=== PATIENT | male | born 1950 | race Caucasian/White ===

== ENCOUNTER → 2022-11-22 | Outpatient (CLI) | payer MEDICARE, SELFPAY ==
[2022-11-22 15:49] LABS: Absolute Lymphocyte Count 2.81 X10^3/uL (0.83-4.51); Absolute Neutrophil Count 10.4 X10^3/uL (2.0-7.7); Basophil# 0.08 X10^3/uL; Basophil% 0.6 % (0-1); Eosinophil# 0.35 X10^3/uL; Eosinophils% 2.4 % (0-5); Hematocrit 45.8 % (40-54); Lymphocyte # 2.81 X10^3/ul (0.83-4.51); Lymphocyte % 19.4 % (19-41); Mean Corp Hgb Conc 32.8 g/dL (32-36); Mean Corpuscular Hgb 29.1 pg (27.0-32.0); Mean Corpuscular Volume 88.8 fL (80-94); Mean Platelet Vol. 9.5 fl (6.2-12.0); Monocyte% 4.8 % (0-10); NRBC Flagged by Analyzer 0 % (0-5); Neutrophil # 10.43 X10^3/uL (2.7-7.7); Neutrophil % 72.1 % (47-70); Platelet Count 443 K/mm3 (150-450); RBC Distribution Width CV 12.2 % (11.6-14.6); Red Blood Count 5.16 M/mm3 (4.6-6.2); White Blood Count 14.5 K/mm3 (4.4-11.0)
[2022-11-22 16:22] LABS: BNP,B-Type NATRIURETIC PEPTIDE 6.5 pg/mL (0-100)
[2022-11-22 16:26] LABS: ALB/GLOB Ratio 0.8 RATIO (0.9-2.4); AST(SGOT) 12 U/L (15-37); Alanine Aminotransfer ALT/SGPT 22 U/L (16-61); Albumin, Serum 3.6 g/dL (3.2-5.0); Alkaline Phosphatase 102 U/L (45-117); Anion Gap 8 (5-15); BUN 17 mg/dL (7-18); BUN/Creat Ratio 13.9 RATIO (10-20); Chloride 104 mmol/L (98-107); Creatinine, Serum 1.22 mg/dL (0.70-1.30); EST Glomerular Filtration Rate 62 mL/min (>60); Est Glom Filt Rate - Afr Amer 76 mL/min (>60); Globulin 4.3 g/dL (2.2-4.2); Glucose 150 mg/dL (74-106); Potassium 4.5 mmol/L (3.5-5.1); Protein, Total 7.9 g/dL (6.4-8.2); Sodium Level 140 mmol/L (136-145); Thyroid Stim Hormone (TSH) 2.94 uIU/mL (0.358-3.74); Troponin-I HS 4 pg/mL (3.0-78.0)
[2022-11-22 17:03] LABS: D-Dimer Quantitative (DVT/PE) 0.66 FEU/ug/m (0.27-0.49)
== END | disposition home or self-care (01) ==
LOC: LABSPEC 15:28
PROVIDERS: Referring Provider Internal Medicine; Visit Provider Internal Medicine
DX: I10 Essential (primary) hypertension (principal); R06.02 Shortness of breath
CPT/HCPCS: 80053; 83880; 84443; 84484; 85025; 85379

== ENCOUNTER 2023-04-10 14:49 | Inpatient (IN) | payer MEDICARE, SELFPAY ==
[2023-04-10] VITALS (9 sets, daily range): BP systolic 108–166; BP diastolic 51–122; PULSE 96–113; RESP 18–29; TEMP 36.1–36.9; O2SAT 92–100; BMI 28.8
--- NOTE | 2023-04-10 15:54 | EKG12_ITS ---
Test Reason : Blood Pressure : / mmHG Vent. Rate : 102 BPM Atrial Rate : 102 BPM P-R Int : 196 ms QRS Dur : 094 ms QT Int : 346 ms P-R-T Axes : 061 027 059 degrees QTc Int : 450 ms Poor data quality, interpretation may be adversely affected Sinus tachycardia Otherwise normal ECG Confirmed by ALEXANDER DURAN, NISSA ([id number]), desk editor MARIANA RAMACHANDRAN ([id number]) on 04/12/2023 8:55:17 AM Referred By: Confirmed By:PRINCE MUNOZ MD
--- NOTE | 2023-04-10 15:55 | EX.ED.DYSGE1 ---
HPI History of Present Illness Chief Complaint: Diarrhea Informant: patient Onset/Context/Timing Onset: Days (5 days) Context: Gradual Onset Narrative Narrative: Patient presents with 5-day history of diarrhea with concern for dehydration. He states that he has had dysuria as well. He has chills but no fever. He reports shortness of breath with has been intermittent for several months. He has had cough with clear sputum. [facility] Medical History Andersen's palsy Chronic back pain Chronic neck pain High cholesterol Hx of gastroesophageal reflux (GERD) Home Medications cyclobenzaprine 10 mg tablet 10 mg PO TID PRN PRN Pain 11/17/13 [History Last Taken Unknown] dicyclomine 20 mg tablet (Bentyl) 20 mg PO 4X/DAY PRN Abdominal Pain #20 tabs 11/17/13 [Rx Last Taken Unknown] gabapentin 600 mg tablet 600 mg PO TIDCM 11/17/13 [History Last Taken Unknown] hydrocodone-acetaminophen 5-325mg 5mg-325mg 1 tab PO TID PRN PRN Pain 11/17/13 [History Last Taken Unknown] omeprazole 20 mg capsule,delayed release 20 mg PO DAILY 11/17/13 [History Last Taken Unknown] pravastatin 40 mg tablet 40 mg PO QHS 11/17/13 [History Last Taken Unknown] promethazine 25 mg tablet 25 mg PO Q6H PRN PRN Nausea ##10 11/17/13 [Rx Last Taken Unknown] Allergy/AdvReac Type Severity Reaction Status Date / Time aspirin AdvReac Nausea Verified 04/10/23 14:53 Social History Smoking Status: Former smoker ROS ROS ED Constitutional Constitutional ED: Reports chills; Denies fever(s) Eyes Eyes: Denies change in vision or discharge from eye(s) ENT ENT ED: Denies discharge from eye(s), rhinorrhea or sore throat Cardiovascular Cardiovascular: Denies chest pain or palpitations Respiratory/Chest Respiratory/Chest: Reports cough, dyspnea and sputum Gastrointestinal Gastrointestinal: Reports diarrhea; Denies abdominal pain, nausea or vomiting Genitourinary Genitourinary ED: Reports dysuria Musculoskeletal Musculoskeletal: Denies back pain or extremity pain Integumentary Denies Abrasions or rash Neurologic Neurologic: Denies headache(s) or weakness Psychiatric Psychiatric: Denies anxiety or depression Allergic/Immunologic Allergic/Immunologic ED: Denies lip swelling or urticaria EXAM Physical Exam Const Vital Signs: 04/10/23 14:51 04/10/23 16:30 04/10/23 17:00 Temperature 97.8 F 98.3 F 98.1 F Temperature Source Temporal Oral Oral Pulse Rate 113 H 104 H 105 H Respiratory Rate 20 H 29 H 18 Blood Pressure 166/122 H 120/63 121/72 H Blood Pressure Mean 136 82 88 Pulse Ox 100 95 97 Oxygen Delivery Method Room Air Room Air Room Air 04/10/23 18:00 04/10/23 20:00 04/10/23 21:00 Temperature 98.1 F 97 F L 97.8 F Temperature Source Oral Temporal Temporal Pulse Rate 104 H 109 H 103 H Respiratory Rate 24 H 21 H 25 H Blood Pressure 123/71 H 108/51 L 130/64 H Blood Pressure Mean 88 70 86 Pulse Ox 94 94 93 Oxygen Delivery Method Room Air Room Air Room Air Positive well nourished and well developed General Appearance ED: well developed HEENT Reports normocephalic and head/scalp atraumatic HEENT Narrative: Left-sided facial droop. 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 Eyes PERRL and EOMs intact bilaterally Neck supple Chest Wall inspection of chest normal and palpation of chest normal Resp normal respiratory effort and clear to auscultation bilaterally Cardio regular rhythm Rate: tachycardic GI GI Narrative: Abdomen soft and distended. No focal tenderness. Active bowel sounds noted throughout. Palpation: soft Extremity normal to inspection Neuro oriented x3 and no sensory deficits noted Sensorium / Orientation: alert Motor Exam: strength 5/5 throughout Psych mental status grossly normal Skin no rashes or lesions noted MDM MDM MDM Narrative Medical decision making narrative: Patient is present pvc monitor. IV fluids given. EKG obtained to evaluate for cardiac arrhythmia/ischemia. Labwork obtained to evaluate for leukocytosis, anemia, and electrolyte derangement. Urinalysis obtained to evaluate for infection/hematuria. I did review Dr. Jules's office visit today. She states urine dip in the office did reveal infection and a prescription for cefdinir was sent to the pharmacy for him. History & Record Review Discussion w/independent historian: Patient and Family Lab Data Attestation: I reviewed the patient's lab results. Labs: Laboratory Results - last 24 hr 04/10/23 04/10/23 16:30 17:34 WBC 30.5 H* RBC 5.21 Hgb 15.0 Hct 45.4 MCV 87.1 MCH 28.8 MCHC 33.0 RDW Std Deviation 41.1 RDW Coeff of Lois 13.1 Plt Count 353 MPV 9.4 Immature Gran % (Auto) 1.300 H Neut % (Auto) 88.1 H Lymph % (Auto) 5.1 L [place] % (Auto) 5.2 Eos % (Auto) 0.0 Baso % (Auto) 0.3 Absolute Neuts (auto) 26.8 H Absolute Lymphs (auto) 1.54 Nucleated RBC % 0 Differential Comment SEE COMMENTS Diff Path Review May foll Platelet Estimate ADEQUATE RBC Morphology N CHROM Anisocytosis RARE Sodium 134 L Potassium 3.8 Chloride 101 Carbon Dioxide 25.0 Anion Gap 8 BUN 13 Creatinine 1.44 H Estim Creat Clear Calc 47.73 Est GFR (MDRD) Af Amer 62 Est GFR (MDRD) Non-Af 52 L BUN/Creatinine Ratio 9.0 L Glucose 144 H Calcium 9.4 Total Bilirubin 1.40 H Direct Bilirubin 0.19 AST 25 ALT 23 Alkaline Phosphatase 117 Total Protein 8.7 H Albumin 3.5 Globulin 5.2 H Urine Color Yellow Urine Clarity Clear Urine pH 7.0 Ur Specific [place] 1.005 Urine Protein 100 H Urine Glucose (UA) Normal Urine Ketones 5 H Urine Occult Blood 25 H Urine Nitrite Negative Urine Bilirubin Negative Urine Urobilinogen Normal Ur Leukocyte Esterase 500 H Urine RBC 0 SEEN Urine WBC 10-25 SEEN Ur Squamous Epith Cells 0-5 SEEN Urine Bacteria 0 SEEN Urine Mucus 0 SEEN Radiography Chest X-Ray - ED: 1 View, Read by ED Physician, Chronic Changes and No Infiltrates Diagnostic Testing: Clinical Impression(s) from Imaging Studies Abdomen/Pelvis CT 04/10/23 18:23 IMPRESSION: Findings suspicious for cystitis. Correlate with urinalysis. Questionable 1.2 cm enhancing round mass in the distal tail of the pancreas. Differential includes accessory splenic tissue or endocrine tumor such as insulinoma. Recommend multiphase CT or MR abdomen with and without contrast for further evaluation. Mild prostatomegaly. Correlate with PSA levels. Electronically Signed: Bob Horvath MD at 19:53 EDT , EKG Initial EKG: Attestation: I personally reviewed and interpreted this EKG as follows: Interpretation: Sinus Tachycardia (Sinus tach at 102. No acute ischemia.) Treatment and Re-Evaluation :: CBC was a white count of 30.5 with 88% neutrophils. Chemistry studies reveal a creatinine 1.44. Total bili is 1.4. Remainder of LFTs unremarkable. Urinalysis reveals 10-25 white cells with 0-5 epithelials. Negative nitrites and 0 bacteria. Blood and urine cultures have been sent. With the patient's white blood cell count elevated that high and having diarrhea, I was concerned for C. difficile. Stool studies have been ordered. 2 separate samples have been sent, however 1 was contaminated with urine and 1 was not a large enough sample. I spoke with patient's primary care physician, Dr. Jules who saw him in the office today. She states that she does not know of him to have a chronically elevated white count and this certainly is out of character. She states her primary concern when she saw in the office today was for his breathing. Because I could not get stool, CT of the abdomen pelvis was obtained to evaluate for obvious signs of colitis. This returns with possible cystitis, but no significant bowel findings are noted. Portable chest x-ray per my interpretation reveals no focal infiltrate. Chronic changes appreciated. At this time the lactic acid is pending. Patient is given a dose of IV Rocephin. PCP would feel more comfortable with patient being observed overnight and repeat labs to ensure he is not developing sepsis. I will speak with the hospitalist. Discharge Plan Dx/Rx/DC Orders Clinical Impression: UTI (urinary tract infection), Diarrhea, Leukocytosis Disposition Disposition: Acute Care [facility]
[2023-04-10 16:42] LABS: Absolute Lymphocyte Count 1.54 X10^3/uL (0.83-4.51); Absolute Neutrophil Count 26.8 X10^3/uL (2.0-7.7); Basophil% 0.3 % (0-1); Hematocrit 45.4 % (40-54); Lymphocyte # 1.54 X10^3/ul (0.83-4.51); Lymphocyte % 5.1 % (19-41); Mean Corpuscular Hgb 28.8 pg (27.0-32.0); Mean Corpuscular Volume 87.1 fL (80-94); Mean Platelet Vol. 9.4 fl (6.2-12.0); Monocyte# 1.57 X10^3/uL; Monocyte% 5.2 % (0-10); NRBC Flagged by Analyzer 0 % (0-5); Neutrophil # 26.84 X10^3/uL (2.7-7.7); Neutrophil % 88.1 % (47-70); POSITIVE COUNT YES; POSITIVE DIFFERENTIAL YES; Platelet Count 353 K/mm3 (150-450); RBC Distribution Width CV 13.1 % (11.6-14.6); RBC Distribution Width SD 41.1 fl (35.1-43.9); Red Blood Count 5.21 M/mm3 (4.6-6.2)
[2023-04-10] MEDS: 0.9% Normal Saline 1,000 ML 1000 ML IV (16:45)
[2023-04-10 16:49] LABS: Differential Indicated SCAN CRITERIA MET
[2023-04-10 16:51] LABS: White Blood Count 30.5 K/mm3 (4.4-11.0)
[2023-04-10 17:21] LABS: Anisocytosis RARE; Differential Comment SEE COMMENTS; Platelet Estimate ADEQUATE (ADEQ); Red Cell Morphology N CHROM NORMAL (NORM C&C)
[2023-04-10 17:24] LABS: AST(SGOT) 25 U/L (15-37); Alanine Aminotransfer ALT/SGPT 23 U/L (16-61); Albumin, Serum 3.5 g/dL (3.2-5.0); Alkaline Phosphatase 117 U/L (45-117); Anion Gap 8 (5-15); BUN 13 mg/dL (7-18); Bilirubin, Direct 0.19 mg/dL (0.00-0.30); Calcium,Total 9.4 mg/dL (8.5-10.1); Chloride 101 mmol/L (98-107); Creatinine, Serum 1.44 mg/dL (0.70-1.30); EST Glomerular Filtration Rate 52 mL/min (>60); Est Glom Filt Rate - Afr Amer 62 mL/min (>60); Estimated Creatinine Clearance 47.73 ml/min; Globulin 5.2 g/dL (2.2-4.2); Glucose 144 mg/dL (74-106); Potassium 3.8 mmol/L (3.5-5.1); Protein, Total 8.7 g/dL (6.4-8.2); Sodium Level 134 mmol/L (136-145)
[2023-04-10 17:44] LABS: Bacteria 0 SEEN /hpf (None Seen); Mucous, Urine 0 SEEN /hpf (<or=2+); Red Blood Cells-Urine 0 SEEN /hpf (0-5)
[2023-04-10 17:45] LABS: Color, Urine Yellow (Yellow); Glucose, Dipstick Normal (Normal); Ketone-Dipstick 5 mg/dl (Negative); Leukocyte Esterase-Dipstick 500 /ul (Negative); Nitrite-Dipstick Negative (Negative); Occult Blood-Urine 25 /ul (Negative); Protein-Dipstick 100 mg/dl (Negative); Specific Gravity, Urine 1.005 (1.002-1.030); Urine Bilirubin Dipstick Negative (Negative); Urine Clarity Clear (Clear); Urine Urobilinogen Normal (Normal)
[2023-04-10 17:59] LABS: Squamous Epithelial Cells - UA 0-5 SEEN /hpf (0-5); White Blood Cells 10-25 SEEN /hpf (0-5)
--- NOTE | 2023-04-10 18:23 | CT_ITS ---
INDICATION: abd pain, diarrhea EXAMINATION: CT Abdomen And Pelvis W/ Contrast Injection TECHNIQUE: Helically acquired images were obtained of the abdomen and pelvis after IV contrast. A radiation dose optimization technique was used for this scan. IV Contrast dosage and agent: IV 100mL [id number]-300 Oral contrast: None. COMPARISON: None. FINDINGS: Visualized lung bases: Unremarkable Liver: Unremarkable Gallbladder: Surgically absent. Spleen: Unremarkable Pancreas: Questionable 1.2 cm enhancing round mass in the distal tail of the pancreas seen best on axial slice 33. Adrenal Glands: Unremarkable Kidneys: Unremarkable Vasculature: Moderate aortoiliac atherosclerotic disease. GI Tract: The appendix is normal. Lymphadenopathy: None Peritoneum: No ascites. Bladder: Mild circumferential wall thickening with subtle surrounding inflammatory changes. Reproductive organs: The prostate is mildly enlarged. Bones/Soft tissues: Mild scattered degenerative changes of the visualized spine. CT/Abdomen/Pelvis W IV Cont ONLY IMPRESSION: Findings suspicious for cystitis. Correlate with urinalysis. Questionable 1.2 cm enhancing round mass in the distal tail of the pancreas. Differential includes accessory splenic tissue or endocrine tumor such as insulinoma. Recommend multiphase CT or MR abdomen with and without contrast for further evaluation. Mild prostatomegaly. Correlate with PSA levels. Electronically Signed: Bob Horvath MD at 19:53 EDT ,
--- NOTE | 2023-04-10 21:18 | RAD_ITS ---
INDICATION: sob EXAMINATION/TECHNIQUE: X-RAY - XR Chest 1 View COMPARISON: 09/18/2022. FINDINGS: Chronic lung changes. No definite acute lung findings. Tortuous and calcified thoracic aorta. The heart is not enlarged. No pleural effusion or pneumothorax. Degenerative changes of the thoracic spine. RAD/Chest 1 View (Portable) IMPRESSION: Chronic lung changes. No definite acute lung findings. Electronically Signed: Bob Horvath MD at 22:47 EDT ,
[2023-04-10] MEDS: 0.9% Normal Saline 1,000 ML 999 ML IV (21:45)
[2023-04-10] MEDS: Ceftriaxone 1 GM/50 ML BAG IV (21:45)
--- NOTE | 2023-04-10 22:16 | PCM.HP.STD ---
HPI - General General Date of Admission: 04/10/23 HPI Narrative ZUMLA AARON, is a 72 M who presents from his doctor's office secondary to concerns for possible UTI and dehydration. He is also had 5 days of diarrhea. He denies any sick contacts or any abnormal food intake. No recent antibiotics, he did not have time to fill the oral antibiotic given to him by his PCP today for possible UTI. He has had a fairly significant history of UTIs and no one's been able to figure out why, the son believes that he is seeing a urologist in [place]. He also denies drinking any well water, at home he uses bottled water for both drinking and cooking. He denies any significant abdominal pain and no bloody bowel movements. He does have a significant leukocytosis to 30.5 but he remains afebrile, UA with an elevated leukocyte esterase but no bacteria seen and nitrites are negative. Initial attempts at stool culture were initially contaminated with urine and the volume was not large enough to run the tests, so these are still pending. He did receive a dose of Rocephin overnight. Creatinine is slightly elevated though not significantly from baseline at 1.44 with a baseline of around 1.2. [facility] Medical History (Updated 04/10/23 @ 23:29 by Catrachita Banuelos) Anxiety Andersen's palsy Chest pain Chronic back pain Chronic neck pain Former smoker High cholesterol Hx of gastroesophageal reflux (GERD) Hypertension Migraines Home Medications cyclobenzaprine 10 mg tablet 10 mg PO TID PRN PRN Pain 11/17/13 [History Last Taken Unknown] gabapentin 600 mg tablet 600 mg PO TIDCM 11/17/13 [History Last Taken Unknown] omeprazole 20 mg capsule,delayed release 20 mg PO DAILY 11/17/13 [History Last Taken Unknown] pravastatin 40 mg tablet 40 mg PO QHS 11/17/13 [History Last Taken Unknown] duloxetine 60 mg capsule,delayed release 60 mg PO DAILY 04/10/23 [History Last Taken Unknown] tamsulosin 0.4 mg capsule 0.4 mg PO DAILY prostate 04/10/23 [History Last Taken Unknown] trazodone 50 mg tablet 50 mg PO QHS sleep 04/10/23 [History Last Taken Unknown] losartan 25 mg tablet 25 mg PO DAILY bp 04/11/23 [History Last Taken Unknown] Allergy/AdvReac Type Severity Reaction Status Date / Time aspirin AdvReac Nausea Verified 04/10/23 14:53 Family History (Updated 04/10/23 @ 22:[address] Kendrick Manzano MD) Other Heart disease Surgical History (Updated 04/10/23 @ 23:29 by Catrachita Banuelos) History of cholecystectomy S/P cervical spinal fusion Social History Smoking Status: Former smoker ROS Constitutional Constitutional: Reports chills; Denies fatigue, fever(s) or malaise Eyes Eyes: Denies blurry vision ENT HEENT: Denies headache(s) or nasal discharge Cardiovascular Cardiovascular: Denies chest pain, dyspnea on exertion or syncope Respiratory/Chest Respiratory/Chest: Reports cough; Denies shortness of breath at rest or shortness of breath with exertion Gastrointestinal Gastrointestinal: Reports diarrhea; Denies abdominal pain, constipation, hematochezia, melena, nausea or vomiting Genitourinary Genitourinary: Reports dysuria Neurologic Neurologic: Denies focal weakness, numbness or tremor(s) Psychiatric Psychiatric: Denies anxiety or depression Vital Signs Vital Signs Vital Signs: 04/10/23 14:51 04/10/23 16:30 04/10/23 17:00 Temperature 97.8 F 98.3 F 98.1 F Temperature Source Temporal Oral Oral Pulse Rate 113 H 104 H 105 H Respiratory Rate 20 H 29 H 18 Blood Pressure 166/122 H 120/63 121/72 H Blood Pressure Mean 136 82 88 Pulse Ox 100 95 97 Oxygen Delivery Method Room Air Room Air Room Air 04/10/23 18:00 04/10/23 20:00 04/10/23 21:00 Temperature 98.1 F 97 F L 97.8 F Temperature Source Oral Temporal Temporal Pulse Rate 104 H 109 H 103 H Respiratory Rate 24 H 21 H 25 H Blood Pressure 123/71 H 108/51 L 130/64 H Blood Pressure Mean 88 70 86 Pulse Ox 94 94 93 Oxygen Delivery Method Room Air Room Air Room Air Weight Weight: 195 lb Body Mass Index (BMI) 28.8 Physical Exam Narrative General: Alert, Oriented x3, Cooperative, No apparent distress HEENT: Atraumatic, PERRLA, EOMI, Normocephalic Oral: Moist Mucosa Neck: Supple, No JVD Lungs: Diminished, Normal air movement, No rhonchi, No wheeze, No rales Cardiovascular: Tachycardic, Regular Rhythm, Normal S1, Normal S2, No murmurs Abdomen: Soft, Non Tender, Non-Distended, No Hepato-splenomegaly Extremities: No edema, Capillary Refill Less than 3 Seconds Skin: No rashes, No breakdown Musculoskeletal: No Tenderness to Palpation of Joints or Extremities Neurological: Cranial nerves II-XII grossly intact, Motor Exam 5/5 strength throughout, Sensory exam intact to light touch and pain Psych/Mental Status: Normal Affect, Appropriate Results Lab / Micro Data 04/11/23 02:20 04/10/23 16:30 Labs: Laboratory Results - last 24 hr 04/10/23 16:30: WBC 30.5 H*, RBC 5.21, Hgb 15.0, Hct 45.4, MCV 87.1, MCH 28.8, MCHC 33.0, RDW Std Deviation 41.1, RDW Coeff of Lois 13.1, Plt Count 353, MPV 9.4, Immature Gran % (Auto) 1.300 H, Neut % (Auto) 88.1 H, Lymph % (Auto) 5.1 L, [place] % (Auto) 5.2, Eos % (Auto) 0.0, Baso % (Auto) 0.3, Absolute Neuts (auto) 26.8 H, Absolute Lymphs (auto) 1.54, Nucleated RBC % 0, Differential Comment SEE COMMENTS, Diff Path Review January foll, Platelet Estimate ADEQUATE, RBC Morphology N CHROM, Anisocytosis RARE, Sodium 134 L, Potassium 3.8, Chloride 101, Carbon Dioxide 25.0, Anion Gap 8, BUN 13, Creatinine 1.44 H, Estim Creat Clear Calc 47.73, Est GFR (MDRD) Af Amer 62, Est GFR (MDRD) Non-Af 52 L, BUN/Creatinine Ratio 9.0 L, Glucose 144 H, Calcium 9.4, Total Bilirubin 1.40 H, Direct Bilirubin 0.19, AST 25, ALT 23, Alkaline Phosphatase 117, Total Protein 8.7 H, Albumin 3.5, Globulin 5.2 H 04/10/23 17:34: Urine Color Yellow, Urine Clarity Clear, Urine pH 7.0, Ur Specific [place] 1.005, Urine Protein 100 H, Urine Glucose (UA) Normal, Urine Ketones 5 H, Urine Occult Blood 25 H, Urine Nitrite Negative, Urine Bilirubin Negative, Urine Urobilinogen Normal, Ur Leukocyte Esterase 500 H, Urine RBC 0 SEEN, Urine WBC 10-25 SEEN, Ur Squamous Epith Cells 0-5 SEEN, Urine Bacteria 0 SEEN, Urine Mucus 0 SEEN Micro: Microbiology 04/10/23 16:30 Nasal Secretion SARS-CoV-2 Antigen (Rapid) - Final Radiology Impression Abdomen/Pelvis CT 04/10/23 18:23 IMPRESSION: Findings suspicious for cystitis. Correlate with urinalysis. Questionable 1.2 cm enhancing round mass in the distal tail of the pancreas. Differential includes accessory splenic tissue or endocrine tumor such as insulinoma. Recommend multiphase CT or MR abdomen with and without contrast for further evaluation. Mild prostatomegaly. Correlate with PSA levels. Electronically Signed: Bob Horvath MD at 19:53 EDT , Assessment & Plan Assessment/Plan (1) Diarrhea: (2) Leukocytosis: PLAN: Plan 1. Acute diarrhea with dehydration leukocytosis/possible UTI/1.2 cm enhancing round mass in the tail of the pancreas ? UA does have some markers positive for UTI however no bacteria are seen ? He did receive a dose of Rocephin in the ER so he is covered for 24 hours ? We will continue to attempt to obtain stool samples to send for fecal leukocyte as well as C. difficile and enteric pathogen panel, he is denying any abdominal pain at this time if he does develop abdominal pain then we will likely treat with p.o. vancomycin empirically, CT scan does not indicate a colitis at this time but there are findings concerning for cystitis and he does have a history of UTIs ? Lactate of 2.3 we will continue with aggressive IV fluids ? Unfortunately we do not have any previous urine culture data ? There is a questionable 1.2 cm enhancing round mass in the distal tail of the pancreas can obtain an MR without contrast or multiphasic CT scan for further evaluation either during this admission or soon after discharge 2. Anxiety/depression ? Stable ? Continue with Cymbalta 3. Hyperlipidemia ? Stable ? Continue with pravastatin 4. GERD ? Stable ? Continue with PPI 5. BPH ? Stable ? Continue with Flomax DVT: Lovenox 78 minutes was spent on direct patient care, including documentation as well as chart review and collaboration with colleagues Charges/Coding Visit Charges Inpatient E&M: 33275 Init Hosp L3
[2023-04-10 22:35] LABS: Lactic Acid 2.3 mmol/L (0.4-1.9)
[2023-04-11] MEDS: 0.9% Normal Saline 1,000 ML 150 ML IV ×2 (01:36→09:17)
[2023-04-11 01:56] LABS: Reflex Lactate? Y
[2023-04-11 02:43] LABS: Absolute Lymphocyte Count 2.16 X10^3/uL (0.83-4.51); Absolute Neutrophil Count 22.4 X10^3/uL (2.0-7.7); Basophil# 0.08 X10^3/uL; Basophil% 0.3 % (0-1); Eosinophil# 0.02 X10^3/uL; Eosinophils% 0.1 % (0-5); Hematocrit 37.7 % (40-54); Hemoglobin 12.2 g/dL (13.0-16.5); Lymphocyte # 2.16 X10^3/ul (0.83-4.51); Lymphocyte % 8.1 % (19-41); Mean Corp Hgb Conc 32.4 g/dL (32-36); Mean Corpuscular Hgb 28.4 pg (27.0-32.0); Mean Corpuscular Volume 87.7 fL (80-94); Mean Platelet Vol. 9.6 fl (6.2-12.0); Monocyte# 1.38 X10^3/uL; Monocyte% 5.2 % (0-10); NRBC Flagged by Analyzer 0 % (0-5); Neutrophil # 22.41 X10^3/uL (2.7-7.7); Neutrophil % 84.5 % (47-70); POSITIVE DIFFERENTIAL YES; Platelet Count 306 K/mm3 (150-450); RBC Distribution Width CV 12.9 % (11.6-14.6); RBC Distribution Width SD 41.5 fl (35.1-43.9); White Blood Count 26.5 K/mm3 (4.4-11.0)
[2023-04-11 02:44] LABS: Differential Indicated SCAN CRITERIA MET
[2023-04-11 03:06] LABS: ALB/GLOB Ratio 0.6 RATIO (0.9-2.4); AST(SGOT) 11 U/L (15-37); Alanine Aminotransfer ALT/SGPT 17 U/L (16-61); Albumin, Serum 2.6 g/dL (3.2-5.0); Alkaline Phosphatase 89 U/L (45-117); Anion Gap 6 (5-15); BUN 12 mg/dL (7-18); BUN/Creat Ratio 9.7 RATIO (10-20); Calcium,Total 8.1 mg/dL (8.5-10.1); Chloride 107 mmol/L (98-107); Creatinine, Serum 1.24 mg/dL (0.70-1.30); EST Glomerular Filtration Rate 61 mL/min (>60); Est Glom Filt Rate - Afr Amer 74 mL/min (>60); Estimated Creatinine Clearance 55.43 ml/min; Globulin 4.1 g/dL (2.2-4.2); Glucose 159 mg/dL (74-106); Protein, Total 6.7 g/dL (6.4-8.2); Sodium Level 138 mmol/L (136-145)
[2023-04-11 03:08] LABS: Lactic Acid 1.2 mmol/L (0.4-1.9)
[2023-04-11 03:49] LABS: Differential Comment SCANNED
[2023-04-11 04:45] VITALS: BP 126/78; PULSE 99; RESP 18; TEMP 36.9; O2SAT 94
[2023-04-11 08:56] VITALS: BP 141/84; PULSE 93; RESP 18; TEMP 36.9; O2SAT 95
[2023-04-11] MEDS: Potassium Chloride Oral Tablet 20 MEQ 40 MEQ PO (09:18)
[2023-04-11] MEDS: Gabapentin 600 MG Tablet PO ×2 (09:18→21:41)
[2023-04-11] MEDS: Tamsulosin HCl 0.4 MG Capsule PO (09:20)
[2023-04-11] MEDS: Pantoprazole Sodium 20 MG Tablet PO (09:20)
[2023-04-11] MEDS: Enoxaparin 40 MG/0.4 ML Syringe SC (09:20)
[2023-04-11] MEDS: Ensure Plus High Protein 120 ML LIQUID PO (09:20)
[2023-04-11] MEDS: DULoxetine Hcl 60 MG Capsule PO (09:20)
[2023-04-11] MEDS: Losartan Potassium 25 MG Tablet PO (09:21)
--- NOTE | 2023-04-11 10:44 | MRI_ITS ---
Exam: MR MRCP W/O Contrast Comparison: Enhanced abdomen and pelvis CT April 10, 2023 with cholecystectomy and nondilated common duct, pancreas adrenals, main portal vein and mesenteric veins mild intrapelvic fluid prostatomegaly thick-walled gallbladder. There were mild sclerotic changes in the humeral heads typical of avascular necrosis without head flattening common duct was 8 mm proximal to the pancreas smaller in the pancreas. Question of 1.2 cm enhancing nodule in the tail of the pancreas on axial images History: abnormal abdominal CT with concerns of mass Contrast: Unenhanced exam. FINDINGS: BILIARY: Unremarkable common duct, measuring 5 mm proximally, and 5 mm in its midportion, smooth tapering distally. LUNG BASES: Trace pleural effusions. PANCREAS: No convincing nodule in the inferior aspect of the tail of the pancreas.Tiny pancreatic duct without adjacent cystic or other lesion. OTHER: Tiny cyst noted in the superior left kidney, roughly 7 mm, not well seen on prior CT. No focal hepatic or splenic lesions. MRI/MRCP Abdomen without Contrast IMPRESSION: No discrete pancreatic cyst, nodule or mass is confirmed at the tail of pancreas or elsewhere. No biliary distention. No pancreatic duct dilatation. Electronically Signed: Amara Jimenez MD at 7:06 EDT ,
--- NOTE | 2023-04-11 11:48 | CASEMGMT ---
Social Work SW let pt know that LW/POA forms not on file, asked he and daughter to have them brought in as able. Daughter states they are at pt's home in [place]. SW explained they do not need to go to [place] to get the papers, however if they were needed at some point on the admission, we may ask family to do this. Daughter states understanding, she states pt's son is POA. KARTHIK Richmond
--- NOTE | 2023-04-11 13:00 | CASEMGMT ---
RN?CM?STAFFING DIRECTOR?CM?to room to meet with patient for initial transition planning/care coordination?assessment.?RN?CM?introduced self and role at [facility].? Pt voices understanding and consents to?assessment?at this time.? Pt resting in bed in no distress at this time.?Rogelior, Evangelina, @ bedside. Pt is A/O at this time and answers all questions appropriately, although he is forgetful at times and dtr did provide some clarifications and additional information. Care providers, pharmacy, and demographics verified/updated at this time. PCP: Dr Jules Specialists: Urologist @ [facility]. Pt also sees a drapery cutter machine, but does not remember their name. Preferred Pharmacy: [facility] in [place] Insurance: [employer] [facility] Prescription Benefit:?Yes Living Will/HPOA:?Has both LW and HCPOA, who is his son, Harish THOMASON: Son/POA, Harish. Son, Mynor. Dtr, Evangelina Living Arrangements: Lives alone in 2-story home w/FFSU. 4 or more steps to enter into the home. Pt states he does struggle a little bit w/the stairs. Indep w/ADL's and IADL's when at his baseline, but has had increased weakness. Transportation:?Pt states drives self and states no transportation concerns at this time.? DME: ? Denies using any DME and denies needs.?Pt used to have a PAP, but dtr states he had surgery and no longer needs it. HHC/SNF: Was @ a SNF in [place] after having COVID and then had HHC after returning home. Neither pt nor dtr remember names. Discussed HHC or OP therapy and [facility]'s homebound criteria for HHC. Pt is not homebound and would not qualify for HHC. They also do not think pt will need OP therapy. Dtr states, if pt not strong enough to return home alone, then the plan is for him to discharge to one of his children's homes until he can return to his own home. Pt and family wish for pt to return home and state has no concerns with going home at time of discharge.? CM?to follow for any discharge planning/needs.? Pt and dtr voice no further concerns/needs at this time.? Advised them to ask for?CM?if any further questions/concerns/needs arise.? They voice understanding. PLAN:??Either home alone or home w/family, depending on pt's strength/ability. PT/OT evals pending. Melissa BSN?RN?CM
[2023-04-11 13:08] LABS: Pathologist Review Reviewed
--- NOTE | 2023-04-11 15:18 | NURSING ---
to MRI in w/ch for testing
[2023-04-11 15:21] VITALS: BP 115/60; PULSE 93; RESP 16; TEMP 36.7; O2SAT 95
--- NOTE | 2023-04-11 18:12 | PCM.PN.HOSP ---
Reason for Visit Reason for Visit: Diagnoses Elevated white blood cell count, unspecified (04/10/23) Diarrhea, unspecified (04/10/23) Subjective Subjective Patient was seen and examined today, he still having some loose stools. Patient's white blood cell count today was 26.5, he does state that he is having some dysuria so I have decided to keep the patient on Rocephin at this time. Patient's stool studies so far have been negative, ova and parasites are pending. Objective Data Objective Data Vital Signs: Vital Signs Temp Pulse Resp BP Pulse Ox O2 Del Method 98.0 F 93 16 115/60 95 Room Air 04/11/23 15:21 04/11/23 15:21 04/11/23 15:21 04/11/23 15:21 04/11/23 15:21 04/11/23 15:21 Oxygen Delivery Method Room Air Weight: 88.541 kg Body Mass Index (BMI) 28.8 Intake & Output: Intake and Output for Last 24 Hours 04/09/23 04/10/23 04/11/23 23:59 23:59 23:59 Intake Total 2049 3707.5 / 3707.5 Balance 2049 3707.5 / 3707.5 Lab / Micro Data 04/11/23 02:20 04/11/23 02:20 Labs: Laboratory Results - last 24 hr 04/10/23 16:30: Diff Path Review Reviewed 04/10/23 21:45: Lactic Acid 2.3 H* 04/11/23 02:20: WBC 26.5 H, RBC 4.30 L, Hgb 12.2 L, Hct 37.7 L, MCV 87.7, MCH 28.4, MCHC 32.4, RDW Std Deviation 41.5, RDW Coeff of Lois 12.9, Plt Count 306, MPV 9.6, Immature Gran % (Auto) 1.800 H, Neut % (Auto) 84.5 H, Lymph % (Auto) 8.1 L, [place] % (Auto) 5.2, Eos % (Auto) 0.1, Baso % (Auto) 0.3, Absolute Neuts (auto) 22.4 H, Absolute Lymphs (auto) 2.16, Nucleated RBC % 0, Differential Comment SCANNED, Sodium 138, Potassium 3.0 L, Chloride 107, Carbon Dioxide 25.0, Anion Gap 6, BUN 12, Creatinine 1.24, Estim Creat Clear Calc 55.43, Est GFR (MDRD) Af Amer 74, Est GFR (MDRD) Non-Af 61, BUN/Creatinine Ratio 9.7 L, Glucose 159 H, Lactic Acid 1.2, Calcium 8.1 L, Total Bilirubin 0.70, AST 11 L, ALT 17, Alkaline Phosphatase 89, Total Protein 6.7, Albumin 2.6 L, Globulin 4.1, Albumin/Globulin Ratio 0.6 L Micro: Microbiology 04/10/23 23:05 Stool Stool Lactoferrin - Final 04/10/23 23:05 Stool Enteric Bacteriology - Final 04/10/23 23:05 Stool C. difficile DNA Amplification - Final 04/10/23 16:30 Nasal Secretion SARS-CoV-2 Antigen (Rapid) - Final Radiography Diagnostic Testing: Radiology Impression Abdomen/Pelvis CT 04/10/23 18:23 IMPRESSION: Findings suspicious for cystitis. Correlate with urinalysis. Questionable 1.2 cm enhancing round mass in the distal tail of the pancreas. Differential includes accessory splenic tissue or endocrine tumor such as insulinoma. Recommend multiphase CT or MR abdomen with and without contrast for further evaluation. Mild prostatomegaly. Correlate with PSA levels. Electronically Signed: Bob Horvath MD at 19:53 EDT , Chest X-Ray 04/10/23 21:18 IMPRESSION: Chronic lung changes. No definite acute lung findings. Electronically Signed: Bob Horvath MD at 22:47 EDT , Physical Exam Const alert, oriented x3, no apparent distress and healthy appearing General Appearance: cooperative, well kempt and well developed Orientation / Consciousness: awake, oriented to person, oriented to place and oriented to time HEENT normocephalic, head/scalp atraumatic and moist oral mucous membranes Eyes PERRL, EOMs intact bilaterally and conjunctivae normal Neck supple, no JVD, thyroid normal and no carotid bruits General: trachea midline Resp normal respiratory effort, no retractions, no use of accessory muscles and clear to auscultation bilaterally Auscultation: Negative for rales, rhonchi or wheezes Cardio regular rate, regular rhythm, S1 normal heart sound, S2 normal heart sound, no murmurs, no rub and no gallops GI normal to inspection, nondistended, normoactive bowel sounds, soft to palpation, non-tender and non-distended Extremity no clubbing, cyanosis or edema Skin no rashes or lesions noted General Skin Exam: no breakdown Neuro oriented x3, CN's II-XII intact bilaterally, no focal motor deficits and no sensory deficits noted Sensorium / Orientation: awake and alert Speech: speech normal Psych affect normal Assessment & Plan Assessment/Plan (1) Diarrhea: PLAN: Plan 1. Diarrhea-etiology unclear, possibly secondary to gastroenteritis, continue IV fluids at 100 cc/h, supportive care #2 leukocytosis-etiology unclear at this point, could be secondary to urinary tract infection or gastroenteritis, I have elected to place the patient on Rocephin for a UTI. #3 acute cystitis-again patient is on Rocephin #4 essential hypertension-patient is on losartan #5 chronic depression-patient is on Cymbalta #[address] of the abdomen indicating possible pancreatic mass-patient underwent a MRCP today Total clinical time spent by myself addressing patient's medical issues, reviewing all of his data, and collaborating with patient's care team: 35-minutes Charges/Coding Visit Charges Inpatient E&M: 69737 Subs Hosp L2
[2023-04-11] MEDS: Ceftriaxone 1 GM/50 ML BAG IV (18:24)
[2023-04-11] MEDS: 0.9% Normal Saline 1,000 ML 100 ML IV ×2 (18:24→21:41)
[2023-04-11] MEDS: Acetaminophen 325 MG Tablet 650 MG PO (20:37)
[2023-04-11 20:42] VITALS: BP 157/78; PULSE 92; RESP 16; TEMP 36.5; O2SAT 98
[2023-04-11] MEDS: traZODone 50 MG Tablet PO (21:41)
[2023-04-11] MEDS: Pravastatin 40 MG Tablet PO (21:41)
[2023-04-12 03:00] VITALS: BP 150/79; PULSE 97; RESP 16; TEMP 37.4; O2SAT 94
[2023-04-12] MEDS: 0.9% Normal Saline 1,000 ML 100 ML IV ×2 (05:54→15:21)
[2023-04-12 06:42] LABS: Absolute Lymphocyte Count 0.98 X10^3/uL (0.83-4.51); Absolute Neutrophil Count 11.4 X10^3/uL (2.0-7.7); Basophil# 0.07 X10^3/uL; Basophil% 0.5 % (0-1); Eosinophil# 0.02 X10^3/uL; Eosinophils% 0.1 % (0-5); Hematocrit 36.7 % (40-54); Lymphocyte # 0.98 X10^3/ul (0.83-4.51); Lymphocyte % 7.3 % (19-41); Mean Corp Hgb Conc 32.7 g/dL (32-36); Mean Corpuscular Hgb 28.6 pg (27.0-32.0); Mean Corpuscular Volume 87.6 fL (80-94); Mean Platelet Vol. 9.6 fl (6.2-12.0); Monocyte# 0.77 X10^3/uL; Monocyte% 5.7 % (0-10); NRBC Flagged by Analyzer 0 % (0-5); Neutrophil # 11.36 X10^3/uL (2.7-7.7); Neutrophil % 84.9 % (47-70); Platelet Count 335 K/mm3 (150-450); RBC Distribution Width CV 12.9 % (11.6-14.6); Red Blood Count 4.19 M/mm3 (4.6-6.2); White Blood Count 13.4 K/mm3 (4.4-11.0)
[2023-04-12 08:33] VITALS: BP 127/61; PULSE 90; RESP 18; TEMP 37.5; O2SAT 94
[2023-04-12] MEDS: Gabapentin 600 MG Tablet PO ×3 (08:44→18:07)
[2023-04-12] MEDS: Enoxaparin 40 MG/0.4 ML Syringe SC (08:45)
[2023-04-12] MEDS: Losartan Potassium 25 MG Tablet PO (08:45)
[2023-04-12] MEDS: Acetaminophen 325 MG Tablet 650 MG PO (08:45)
[2023-04-12] MEDS: DULoxetine Hcl 60 MG Capsule PO (08:45)
[2023-04-12] MEDS: Pantoprazole Sodium 20 MG Tablet PO (08:45)
[2023-04-12] MEDS: Tamsulosin HCl 0.4 MG Capsule PO (08:45)
[2023-04-12 15:26] VITALS: BP 122/61; PULSE 83; RESP 16; TEMP 37.1; O2SAT 98
--- NOTE | 2023-04-12 17:31 | PN.HOSP_ITS ---
Reason for Visit Reason for Visit: Diagnoses Elevated white blood cell count, unspecified (04/10/23) Diarrhea, unspecified (04/10/23) Subjective Subjective Patient was seen and examined today, he states he has had multiple loose stools, nursing states that he is only had smears of stool at times. Patient states that he feels as if he needs to have a bowel movement due to abdominal bloating. Patient's white blood cell count today was 13.4. Objective Data Objective Data Vital Signs: Vital Signs Temp Pulse Resp BP Pulse Ox O2 Del Method 98.8 F 83 16 122/61 H 98 Room Air 04/12/23 15:26 04/12/23 15:26 04/12/23 15:26 04/12/23 15:26 04/12/23 15:26 04/12/23 15:26 Oxygen Delivery Method Room Air Weight: 88.541 kg Body Mass Index (BMI) 28.8 Intake & Output: Intake and Output for Last 24 Hours 04/10/23 04/11/23 04/12/23 23:59 23:59 23:59 Intake Total 2049 4668.83 / 4668.83 1766.67 / 1766.67 Balance 2049 4668.83 / 4668.83 1766.67 / 1766.67 Lab / Micro Data 04/12/23 06:15 04/11/23 02:20 Labs: Laboratory Results - last 24 hr 04/12/23 06:15: WBC 13.4 H, RBC 4.19 L, Hgb 12.0 L, Hct 36.7 L, MCV 87.6, MCH 28.6, MCHC 32.7, RDW Std Deviation 41.0, RDW Coeff of Lois 12.9, Plt Count 335, MPV 9.6, Immature Gran % (Auto) 1.500 H, Neut % (Auto) 84.9 H, Lymph % (Auto) 7.3 L, [place] % (Auto) 5.7, Eos % (Auto) 0.1, Baso % (Auto) 0.5, Absolute Neuts (auto) 11.4 H, Absolute Lymphs (auto) 0.98, Nucleated RBC % 0 Micro: Microbiology 04/10/23 17:34 Urine, Clean Catch Urine Culture - Final Culture exhibits no growth. 04/10/23 23:05 Stool Stool Lactoferrin - Final 04/10/23 23:05 Stool Enteric Bacteriology - Final 04/10/23 23:05 Stool C. difficile DNA Amplification - Final 04/10/23 16:30 Nasal Secretion SARS-CoV-2 Antigen (Rapid) - Final Radiography Diagnostic Testing: Radiology Impression MRCP 04/11/23 10:44 IMPRESSION: No discrete pancreatic cyst, nodule or mass is confirmed at the tail of pancreas or elsewhere. No biliary distention. No pancreatic duct dilatation. Electronically Signed: Amara Jimenez MD at 7:06 EDT , Physical Exam Narrative alert, oriented x3, no apparent distress and healthy appearing General Appearance: cooperative, well kempt and well developed Orientation / Consciousness: awake, oriented to person, oriented to place and oriented to time HEENT normocephalic, head/scalp atraumatic and moist oral mucous membranes Eyes PERRL, EOMs intact bilaterally and conjunctivae normal Neck supple, no JVD, thyroid normal and no carotid bruits General: trachea midline Resp normal respiratory effort, no retractions, no use of accessory muscles and clear to auscultation bilaterally Auscultation: Negative for rales, rhonchi or wheezes Cardio regular rate, regular rhythm, S1 normal heart sound, S2 normal heart sound, no murmurs, no rub and no gallops GI normal to inspection, nondistended, normoactive bowel sounds, soft to palpation, non-tender and non-distended Extremity no clubbing, cyanosis or edema Skin no rashes or lesions noted General Skin Exam: no breakdown Neuro oriented x3, CN's II-XII intact bilaterally, no focal motor deficits and no sensory deficits noted Sensorium / Orientation: awake and alert Speech: speech normal Psych affect normal Assessment & Plan Assessment/Plan (1) Leukocytosis: (2) Diarrhea: PLAN: Plan 1. Diarrhea-etiology unclear, possibly secondary to gastroenteritis, continue IV fluids at 100 cc/h, supportive care #2 leukocytosis-etiology unclear at this point, could be secondary to urinary tract infection or gastroenteritis, patient remains on Rocephin at this point, I will repeat his CBC tomorrow #3 acute cystitis-again patient is on Rocephin #4 essential hypertension-patient is on losartan #5 chronic depression-patient is on Cymbalta #[address] of the abdomen indicating possible pancreatic mass-patient underwent a MRCP today Total clinical time spent by myself addressing patient's medical issues, reviewing all of his data, and collaborating with patient's care team: 35- minutes Charges/Coding Visit Charges Inpatient E&M: 35013 Subs Hosp L2
[2023-04-12] MEDS: Bisacodyl 10 MG Suppository RC (18:07)
[2023-04-12 20:35] VITALS: BP 126/65; PULSE 90; RESP 17; TEMP 37.5; O2SAT 96
[2023-04-12] MEDS: traZODone 50 MG Tablet PO (20:46)
[2023-04-12] MEDS: Pravastatin 40 MG Tablet PO (20:46)
[2023-04-12] MEDS: Ceftriaxone 1 GM/50 ML BAG IV (20:46)
[2023-04-13] MEDS: 0.9% Normal Saline 1,000 ML 100 ML IV (01:25)
[2023-04-13 03:00] VITALS: BP 136/61; PULSE 66; RESP 18; TEMP 37; O2SAT 96
[2023-04-13 05:44] LABS: Absolute Lymphocyte Count 1.16 X10^3/uL (0.83-4.51); Absolute Neutrophil Count 4.8 X10^3/uL (2.0-7.7); Basophil# 0.06 X10^3/uL; Basophil% 0.9 % (0-1); Eosinophil# 0.04 X10^3/uL; Eosinophils% 0.6 % (0-5); Hematocrit 34.3 % (40-54); Hemoglobin 11.7 g/dL (13.0-16.5); Lymphocyte # 1.16 X10^3/ul (0.83-4.51); Mean Corp Hgb Conc 34.1 g/dL (32-36); Mean Corpuscular Hgb 29.3 pg (27.0-32.0); Mean Platelet Vol. 9.2 fl (6.2-12.0); Monocyte# 0.56 X10^3/uL; Monocyte% 8.2 % (0-10); NRBC Flagged by Analyzer 0 % (0-5); Neutrophil % 70.4 % (47-70); Platelet Count 322 K/mm3 (150-450); RBC Distribution Width CV 12.8 % (11.6-14.6); RBC Distribution Width SD 39.8 fl (35.1-43.9); Red Blood Count 3.99 M/mm3 (4.6-6.2); White Blood Count 6.8 K/mm3 (4.4-11.0)
[2023-04-13 08:19] VITALS: BP 130/53; PULSE 66; RESP 18; TEMP 37.5; O2SAT 96
[2023-04-13] MEDS: DULoxetine Hcl 60 MG Capsule PO (08:30)
[2023-04-13] MEDS: Pantoprazole Sodium 20 MG Tablet PO (08:30)
[2023-04-13] MEDS: Gabapentin 600 MG Tablet PO ×2 (08:30→12:12)
[2023-04-13] MEDS: Enoxaparin 40 MG/0.4 ML Syringe SC (08:30)
[2023-04-13] MEDS: Losartan Potassium 25 MG Tablet PO (08:30)
[2023-04-13] MEDS: Tamsulosin HCl 0.4 MG Capsule PO (08:30)
[2023-04-13] MEDS: Acetaminophen 325 MG Tablet 650 MG PO (08:31)
--- NOTE | 2023-04-13 10:41 | DCINST_ITS ---
Discharge Instructions Diet Discharge Diet: No restrictions Activity Discharge Activity: Return to Normal Activity Weight Bearing Status: Full weight bearing Follow Up Care Test Results: Test results from this visit will be discussed in further detail at your follow- up appointment, if applicable. Discharge Plan Admission Admit Date/Time: 04/10/23 23:09 Primary Reason for Your Visit: urinary tract infection, gastroenteritis Attending Provider: Ronny Ambriz Primary Care Provider: Paulina Jules Consulting Providers: Kendrick Manzano Discharge Orders/Prescriptions Prescriptions: New cephalexin 500 mg capsule 500 mg PO BID Qty: 6 0RF Rx Instructions: start on 04/14/23 Continued cyclobenzaprine 10 MG tablet 10 mg PO TID PRN PRN (Reason: Pain) gabapentin 600 MG tablet 600 mg PO TIDCM pravastatin 40 MG tablet 40 mg PO QHS omeprazole 20 MG capsule 20 mg PO DAILY trazodone 50 mg tablet 50 mg PO QHS tamsulosin 0.4 mg capsule 0.4 mg PO DAILY duloxetine 60 mg capsule,delayed release(DR/EC) 60 mg PO DAILY losartan 25 mg tablet 25 mg PO DAILY Referrals / Follow Up: Paulina Jules DO [Primary Care Provider] - See Referral Note (at next scheduled appointment time) Paulina Jules DO [[facility]] - Disposition Disposition (needs filled in before D/C Order can be placed): Home, Self Care
--- NOTE | 2023-04-13 10:46 | DS.PCM_ITS ---
Providers Date of Admission: 04/10/23 Date of Discharge: 04/13/23 Primary Care Physician: Dr. Paulina Jules DO Reason For Visit: DIARRHEA WITH DEHYDRATION Diagnosis Discharge Diagnosis (1) Leukocytosis: Status: Acute Code(s): D72.829 - Elevated white blood cell count, unspecified (2) Diarrhea: Status: Acute Code(s): R19.7 - Diarrhea, unspecified Plan 1. Diarrhea-etiology unclear, possibly secondary to gastroenteritis, continue IV fluids at 100 cc/h, supportive care #2 leukocytosis-etiology unclear at this point, could be secondary to urinary tract infection or gastroenteritis, patient remains on Rocephin at this point, I will repeat his CBC tomorrow #3 acute cystitis-again patient is on Rocephin #4 essential hypertension-patient is on losartan #5 chronic depression-patient is on Cymbalta #[address] of the abdomen indicating possible pancreatic mass-patient underwent a MRCP today Total clinical time spent by myself addressing patient's medical issues, reviewing all of his data, and collaborating with patient's care team: 35- minutes Medications at Discharge Home Medications cyclobenzaprine 10 mg tablet 10 mg PO TID PRN PRN Pain 11/17/13 gabapentin 600 mg tablet 600 mg PO TIDCM 11/17/13 omeprazole 20 mg capsule,delayed release 20 mg PO DAILY 11/17/13 pravastatin 40 mg tablet 40 mg PO QHS 11/17/13 duloxetine 60 mg capsule,delayed release 60 mg PO DAILY 04/10/23 tamsulosin 0.4 mg capsule 0.4 mg PO DAILY prostate 04/10/23 trazodone 50 mg tablet 50 mg PO QHS sleep 04/10/23 losartan 25 mg tablet 25 mg PO DAILY bp 04/11/23 cephalexin 500 mg capsule 500 mg PO BID #6 caps 04/13/23 Hospital Course Operations None Procedures None Summary of Care Provided Minutes Spent on Discharge: 31 Hospital Course: 72-year-old white male was seen in the emergency room with complaints of a 5-day history of diarrhea and possible dehydration. Patient also complained of dysuria, he also complained of chills but had no fever. Work-up in the emergency room included a CBC which showed an elevated white blood cell count, creatinine was slightly elevated at 1.44, glucose was 144 and bilirubin was 1.4 urinalysis showed 10-25 WBCs, 0 bacteria. Abdomen and pelvis CT was performed which showed a questionable 1.2 cm enhancing round mass in the distal tail of the pancreas, there was findings suspicious for cystitis. Patient was admitted to [place] [address], given IV antibiotics, and IV fluids. Stool analysis showed no enteric bacteria and no C. difficile. Ova and parasites on the stool was pending at the time the patient was discharged from the hospital. MRCP was perf ormed and showed no abnormality in the pancreas. Patient's white count normalized. On 04/13/2023, patient was seen and examined: On examination he appeared in good health and spirits. Vital signs as documented. Skin warm and dry and without overt rashes. Neck without JVD, neck was supple, trachea midline, thyroid was normal. Lungs clear bilaterally, normal air movement was noted. Heart exam notable for regular rhythm, normal sounds and absence of murmurs, rubs or gallops. Abdomen unremarkable and without evidence of organomegaly, masses, or abdominal aortic enlargement. Bowel sounds are present, abdomen is not distended. Extremities nonedematous, no cyanosis was noted, no clubbing was noted. Neuro: Cranial nerves II through XII are grossly intact, no focal motor deficits were noted, sensation to light touch and pinprick intact, motor exam 5/5 throughout. Psych: Patient is alert and oriented x3, he does not appear anxious or depressed, he does not appear agitated. On 04/13/2023, patient was seen and examined and felt to be stable for discharge home Weight / BMI Weight Weight: 88.541 kg Body Mass Index (BMI) 28.8 ABG / Lab / Microbiology Data 04/13/23 05:18 04/11/23 02:20 Laboratory: Laboratory Results - last 24 hr 04/13/23 05:18: WBC 6.8, RBC 3.99 L, Hgb 11.7 L, Hct 34.3 L, MCV 86.0, MCH 29.3, MCHC 34.1, RDW Std Deviation 39.8, RDW Coeff of Lois 12.8, Plt Count 322, MPV 9.2, Immature Gran % (Auto) 2.900 H, Neut % (Auto) 70.4 H, Lymph % (Auto) 17.0 L , [place] % (Auto) 8.2, Eos % (Auto) 0.6, Baso % (Auto) 0.9, Absolute Neuts (auto) 4.8, Absolute Lymphs (auto) 1.16, Nucleated RBC % 0 Microbiology: Microbiology 04/10/23 17:34 Urine, Clean Catch Urine Culture - Final Culture exhibits no growth. 04/10/23 23:05 Stool Stool Lactoferrin - Final 04/10/23 23:05 Stool Enteric Bacteriology - Final 04/10/23 23:05 Stool C. difficile DNA Amplification - Final 04/10/23 16:30 Nasal Secretion SARS-CoV-2 Antigen (Rapid) - Final D/C Instructions Discharge Diet: No restrictions Weight Bearing Status: Full weight bearing Meaningful Use Info Meaningful Use Diagnoses (Choose all that apply): None applicable Discharge Plan Admission Admit Date/Time: 04/10/23 23:09 Primary Reason for Your Visit: urinary tract infection, gastroenteritis Attending Provider: Ronny Ambriz Primary Care Provider: Paulina Jules Consulting Providers: Kendrick Manzano Discharge Orders/Prescriptions Prescriptions: New cephalexin 500 mg capsule 500 mg PO BID Qty: 6 0RF Rx Instructions: start on 04/14/23 Continued cyclobenzaprine 10 MG tablet 10 mg PO TID PRN PRN (Reason: Pain) gabapentin 600 MG tablet 600 mg PO TIDCM pravastatin 40 MG tablet 40 mg PO QHS omeprazole 20 MG capsule 20 mg PO DAILY trazodone 50 mg tablet 50 mg PO QHS tamsulosin 0.4 mg capsule 0.4 mg PO DAILY duloxetine 60 mg capsule,delayed release(DR/EC) 60 mg PO DAILY losartan 25 mg tablet 25 mg PO DAILY Referrals / Follow Up: Paulina Jules DO [Primary Care Provider] - See Referral Note (at next scheduled appointment time) Paulina Jules DO [[facility]] - Disposition Disposition (needs filled in before D/C Order can be placed): Home, Self Care Charges/Coding Visit Charges Inpatient E&M: 87087 Disch Hosp >30min
--- NOTE | 2023-04-13 11:50 | CASEMGMT ---
ZAKI CM into pt room, pt states he feels safe to go home. He denies any homegoing needs.
== END 2023-04-13 13:02 | disposition home or self-care (01) | DRG 392 ==
LOC: ED 22:23 → MS3 22:43
PROVIDERS: Admitting Provider Family Medicine; Emergency Provider Emergency Medicine; PCP Internal Medicine; Visit Provider Internal Medicine
DX: K52.9 Noninfective gastroenteritis and colitis, unspecified (principal); N30.00 Acute cystitis without hematuria; E78.00 Pure hypercholesterolemia, unspecified; I10 Essential (primary) hypertension; K21.9 Gastro-esophageal reflux disease without esophagitis; F32.A Depression, unspecified; Z87.891 Personal history of nicotine dependence; K86.9 Disease of pancreas, unspecified
CPT/HCPCS: 36415; 71045; 74177; 74181; 80048; 80053; 80076; 81001; 83605; 83630; 85025; 87086; 87177; 87209; 87426; 87493; 87506; 93005; 97162; 97802; 99285; J7030; Q9967; A4216

== ENCOUNTER → 2024-11-14 | Outpatient (CLI) | payer MEDICARE, SELFPAY ==
[2024-11-14 16:36] LABS: ALB/GLOB Ratio 1.4 RATIO (0.9-2.4); AST(SGOT) 20 U/L (<=37); Alanine Aminotransfer ALT/SGPT 22 U/L (<=46); Alkaline Phosphatase 85 U/L (40-129); Anion Gap 15 (5-15); BUN 11 mg/dL (4-19); BUN/Creat Ratio 9.4 RATIO (10-20); Calcium,Total 9.3 mg/dL (7.6-11.0); Chloride 102 mmol/L (98-108); EST Glomerular Filtration Rate 64 (>60); Globulin 2.9 g/dL (2.2-4.2); Glucose 160 mg/dL (70-99); Protein, Total 6.9 g/dL (5.9-8.4); Sodium Level 139 mmol/L (133-145); Total Bilirubin 0.33 mg/dL (0.00-1.30); Troponin T High Sensitivity 38 ng/L (<=22)
[2024-11-14 17:31] LABS: D-Dimer Quantitative (DVT/PE) 0.66 FEU/ug/m (0.27-0.49)
[2024-11-16 09:08] LABS: CRP, High Sensitivity 38.14 mg/L (0.00-3.00)
== END | disposition home or self-care (01) ==
LOC: LABSPEC 15:06
PROVIDERS: PCP Internal Medicine; Referring Provider Nurse Practitioner Family; Visit Provider Nurse Practitioner Family
DX: R07.9 Chest pain, unspecified (principal)
CPT/HCPCS: 80053; 84484; 85379; 86141

== ENCOUNTER → 2025-04-20 | Outpatient (CLI) | payer MEDICARE, SELFPAY ==
[2025-04-20 18:05] LABS: Immature Reticulocyte Fraction 17.10 % (3.00-15.90); Platelet Count 392 K/mm3 (150-450); Reticulocyte Count 1.52 % (0.5-1.5)
[2025-04-20 18:37] LABS: Ferritin 14 ng/mL (37-417); Iron 54 ug/dL (65-175); Iron Binding Capacity,Total 369 ug/dL (250-450); Iron Binding Capacity,Unsat 315 ug/dL (228-428); LDH 163 U/L (87-241); PSA,Total- Diagnostic 2.82 ng/mL (0.00-4.00)
[2025-04-20 18:46] LABS: FOLATES,SERUM (FOLIC ACID) 9.14 ng/mL (4.60-34.80)
[2025-04-20 21:20] LABS: Creatinine, Urine (random) 137.00 mg/dL (39.00-259.00); Microalbumin,Random Urine 85.2 mg/L (<20 mg/L)
[2025-04-23 16:09] LABS: PROEL- A/G Ratio 1.1 (0.7-1.7); PROEL- Albumin 3.6 g/dL (2.9-4.4); PROEL- Alpha-1 Globulin 0.3 g/dL (0.0-0.4); PROEL- Alpha-2 Globulin 1.0 g/dL (0.4-1.0); PROEL- Beta Globulin 1.1 g/dL (0.7-1.3); PROEL- Gamma Globulin 0.9 g/dL (0.4-1.8); PROEL- Globulin, Total 3.2 g/dL (2.2-3.9); PROEL- TOTAL PROTEIN 6.8 g/dL (6.0-8.5); PROEL-M-Spike Not Observed g/dL (Not Observed); PROELU- Albumin, Urine 70.3 % (.); PROELU- Alpha-1-Globulin,Ur 3.4 % (.); PROELU- Alpha-2-Globulin,Ur 6.1 % (.); PROELU- Beta Globulin, Ur 12.2 % (.); PROELU- Gamma Globulin, Ur 8.0 % (.); Total Protein, Ur 29.9 mg/dL (Not Estab.)
== END | disposition home or self-care (01) ==
LOC: MTLAB 16:27
PROVIDERS: PCP Internal Medicine; Referring Provider Internal Medicine; Visit Provider Internal Medicine
DX: R79.89 Other specified abnormal findings of blood chemistry (principal); C61 Malignant neoplasm of prostate; E11.21 Type 2 diabetes mellitus with diabetic nephropathy
CPT/HCPCS: 36415; 82043; 82570; 82728; 82746; 83540; 83550; 83615; 84153; 84165; 84166; 85045